=== PATIENT | female | born 1990 | race Caucasian/White ===

== ENCOUNTER 2018-05-14 09:57 | Inpatient (IN) | payer OTHER ==
[2018-05-14] MEDS ORDERED: METHYLERGONOVINE 0.2 MG INJ IM ×2 (10:30→12:30)
[2018-05-14] MEDS ORDERED: MISOPROSTOL 200 MCG TAB PR ×2 (10:30→12:30)
[2018-05-14] MEDS ORDERED: LIDOCAINE 1% (MPF) 30 ML INJ INJ (10:30)
[2018-05-14] MEDS ORDERED: CARBOPROST 250 MCG INJ IM ×2 (10:30→12:30)
[2018-05-14] MEDS ORDERED: BUTORPHANOL 2 MG INJ IV (10:30)
[2018-05-14] MEDS ORDERED: BUTORPHANOL 1 MG INJ IV (10:30)
[2018-05-14] MEDS ORDERED: OXYTOCIN 30 UNITS/LR 500 ML IV ×2 (10:30→12:30)
[2018-05-14] MEDS: LACTATED RINGER'S 1,000 ML IV* ×2 (10:42→11:12)
[2018-05-14 10:47] LABS: ADD MAN DIFF? NO
[2018-05-14 10:57] LABS: BASOPHIL # 0.1 10^3/ul (0.0-0.1); BASOPHILS % 0.5 % (0.0-2.0); EOSINOPHILS % 0.3 % (0.0-7.0); HEMATOCRIT 39.5 % (37.0-47.0); HEMOGLOBIN 13.8 g/dl (12.0-16.0); LYMPHOCYTES # 1.2 10^3/ul (0.8-2.9); LYMPHOCYTES % 11.9 % (15.0-51.0); MEAN CORPUSCULAR HEMOGLOBIN 30.5 pg (29.0-33.0); MEAN CORPUSCULAR HGB CONC 34.9 g/dl (32.0-37.0); MEAN CORPUSCULAR VOLUME 87.4 fl (82.0-101.0); MEAN PLATELET VOLUME 11.6 fl (7.4-10.4); MONOCYTE # 0.8 10^3/ul (0.3-0.9); MONOCYTES % 8.2 % (0.0-11.0); NEUTROPHILS % 77.6 % (39.0-77.0); PLATELET COUNT 158 10^3/UL (140-415); RED BLOOD COUNT 4.52 10^6/ul (4.20-5.40); RED CELL DISTRIBUTION WIDTH 13.6 % (11.5-14.5)
[2018-05-14 10:57] LABS: WHITE BLOOD COUNT 10.2 10^3/ul (4.8-10.8)
[2018-05-14 11:27] LABS: INR 0.93; PROTIME 12.5 Sec (11.9-14.9)
[2018-05-14] MEDS: OXYTOCIN 30 UNITS/LR 500 ML IV ×3 (12:04→17:10)
[2018-05-14] MEDS ORDERED: BENZOCAINE 20% 56 ML SPRAY TOP (12:30)
[2018-05-14] MEDS ORDERED: ONDANSETRON 4 MG INJ IV (12:30)
[2018-05-14] MEDS ORDERED: NACL 0.9% 3 ML SYG IV (12:30)
[2018-05-14] MEDS ORDERED: SENNA/DOCUSATE NA (8.6MG/50MG) TAB PO (12:30)
[2018-05-14] MEDS ORDERED: LANOLIN 7 GM TUBE TOP (12:30)
[2018-05-14] MEDS ORDERED: OXYCODONE/ASPIRIN (4.88/325) TAB PO ×2 (12:30)
[2018-05-14] MEDS ORDERED: WITCH HAZEL/GLYCERIN PAD PR (12:30)
[2018-05-14] MEDS: IBUPROFEN 600 MG TAB PO ×2 (17:09→23:48)
[2018-05-14] MEDS: SENNA/DOCUSATE NA (8.6MG/50MG) TAB PO (21:14)
[2018-05-14 22:17] LABS: RAPID PLASMA REAGIN NONREACTIVE (NR)
[2018-05-15] MEDS: IBUPROFEN 600 MG TAB PO ×4 (05:33→23:48)
[2018-05-15 06:56] LABS: ADD MAN DIFF? NO
[2018-05-15 07:06] LABS: BASOPHIL # 0.1 10^3/ul (0.0-0.1); BASOPHILS % 0.5 % (0.0-2.0); EOSINOPHILS # 0.1 10^3/ul (0.0-0.5); EOSINOPHILS % 0.6 % (0.0-7.0); HEMATOCRIT 38.8 % (37.0-47.0); HEMOGLOBIN 12.9 g/dl (12.0-16.0); LYMPHOCYTES # 1.6 10^3/ul (0.8-2.9); LYMPHOCYTES % 14.9 % (15.0-51.0); MEAN CORPUSCULAR HEMOGLOBIN 29.4 pg (29.0-33.0); MEAN CORPUSCULAR HGB CONC 33.2 g/dl (32.0-37.0); MEAN CORPUSCULAR VOLUME 88.4 fl (82.0-101.0); MEAN PLATELET VOLUME 12.2 fl (7.4-10.4); MONOCYTE # 1.3 10^3/ul (0.3-0.9); NEUTROPHIL # 7.8 10^3/ul (1.6-7.5); NEUTROPHILS % 70.6 % (39.0-77.0); PLATELET COUNT 150 10^3/UL (140-415); RED BLOOD COUNT 4.39 10^6/ul (4.20-5.40); RED CELL DISTRIBUTION WIDTH 13.9 % (11.5-14.5)
[2018-05-15] MEDS: SENNA/DOCUSATE NA (8.6MG/50MG) TAB PO ×2 (10:22→20:55)
[2018-05-16] MEDS: IBUPROFEN 600 MG TAB PO ×2 (05:47→12:00)
[2018-05-16] MEDS: SENNA/DOCUSATE NA (8.6MG/50MG) TAB PO (09:50)
== END 2018-05-16 15:15 | disposition home or self-care (01) | DRG 775 ==
LOC: OBT 09:57 → L-D 09:57 → OBT 10:30 → L-D 10:30 → PP1 15:15
PROVIDERS: Obstetrics & Gynecology
PROC: 10E0XZZ Delivery of Products of Conception, External Approach (ICD-10-PCS; principal; 2018-05-14)
DX: O80 Encounter for full-term uncomplicated delivery (principal); Z3A.39 39 weeks gestation of pregnancy; Z37.0 Single live birth
CPT/HCPCS: 85025; 85610; 85730; 86592; 86850; 86900; 86901